=== PATIENT | male | born 1985 | race African-American/Black ===

== ENCOUNTER 2022-10-08 11:58 | Emergency (ER) | payer SELFPAY ==
[~2022-10-08] VITALS: Ht 180.3 cm; Wt 70.0 kg
[2022-10-08 12:02] VITALS: BP 0/0
== END 2022-10-08 13:52 ==
LOC: ER 11:58
DX: S41.012A Laceration without foreign body of left shoulder, initial encounter (principal); X58.XXXA Exposure to other specified factors, initial encounter; Y93.89 Activity, other specified; Y92.89 Other specified places as the place of occurrence of the external cause; Y99.8 Other external cause status
CPT/HCPCS: 12001; 99283; Z7610